=== PATIENT | female | born 2000 | race Caucasian/White ===

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

== ENCOUNTER 2023-07-12 21:53 | Emergency (ER) | payer BC ==
[~2023-07-12] VITALS: Ht 167.6 cm; Wt 65.9 kg
[~2023-07-12 21:53] MED LIST: NORCO 325 MG-51 TAB PO; PROZAC 20MG20 MG PO; TRI-SPRINTEC 281 TAB PO
[2023-07-12 22:11] VITALS: TEMP 99
[2023-07-12] MEDS ORDERED: diphenhydrAMINE 50 MG/ML 1 ML VIAL IM ONE (22:30)
[2023-07-12] MEDS ORDERED: Ketorolac 60 MG/2 ML VIAL IM ONE (22:30)
[2023-07-12 23:42] VITALS: BP 110/81; PULSE 80
== END 2023-07-12 23:42 | disposition home or self-care (01) ==
LOC: COL.ER 21:53
DX: G43.909 Migraine, unspecified, not intractable, without status migrainosus (principal)
CPT/HCPCS: J0780; J1200; J1885